=== PATIENT | female | born 1965 | race Asian ===

== ENCOUNTER 2022-08-04 06:58 | Day surgery (SDC) | payer OTHER ==
[2022-08-03 17:20] VITALS: BMI 24.7
[2022-08-04] MEDS ORDERED: LIDOCAINE HCL/PF 2% SDV 5ML VIAL ONE (07:48)
[2022-08-04] MEDS ORDERED: PROPOFOL 120 ML ONE (07:48)
[2022-08-04 08:44] VITALS: RESP 16; TEMP 98.1
[2022-08-04 12:59] VITALS: BP 96/60; PULSE 68
== END 2022-08-04 09:15 | disposition home or self-care (01) ==
LOC: FASU-ENDO 06:58
PROVIDERS: ATTEND Internal Medicine Gastroenterology
PROC: 0DB78ZX Excision of Stomach, Pylorus, Via Natural or Artificial Opening Endoscopic, Diagnostic (ICD-10-PCS; 2022-08-04)
PROC: 0DB98ZX Excision of Duodenum, Via Natural or Artificial Opening Endoscopic, Diagnostic (ICD-10-PCS; principal; 2022-08-04 08:20)
DX: K29.50 Unspecified chronic gastritis without bleeding (principal); R10.11 Right upper quadrant pain
CPT/HCPCS: 88305-TC; 88342-TC